=== PATIENT | male | born 1965 | race Caucasian/White ===

== ENCOUNTER → 2017-01-23 | Outpatient (CLI) | payer BC ==
[~2017-01-23] MED LIST: MOBIC7.5 MG PO; NORCO 5-325 MG1 TAB PO; XANAX0.25 MG PO
--- NOTE | ~2017-01-23 | PUL ---
PATIENT'S NAME: SAULO BOYLE [facility] AGE: 51 Y [address] ROOM: [place] [id number] LOCATION: [facility] ADMIT DATE: 01/23/2017 Pulmonary DISCHARGE DATE: FAMILY PHYSICIAN: VEGA DOWNING MD ATTENDING PHYSICIAN: PRIYANKA WILD NAME OF PROCEDURE: Pulmonary Function Test DATE OF PROCEDURE: January 23, 2017 TECH: WICHO King REASON FOR EXAM: Restrictive lung disease RESULTS: 1. FVC was 2.4 liters which is 47% of predicted and low, FEV1 was 1.98 liters which is 50% of predicted and low, and FEV1/FVC was 82% and normal. The flow volume curve did not reveal any significant airflow limitation. After bronchodilator administration FVC increased to 2.54 liters which is a 6% increase and FEV1 increased to 2.15 liters which is an 8% increase. FEV1/FVC was 85%. 2. DLCO was 18.9 with an adjusted DLCO of 18.6 which is 58% of predicted and low. 3. Total lung capacity was 2.72 liters which is 40% of predicted and low, and residual volume was 0.32 liters which is 15% of predicted and low. PHYSICIAN INTERPRETATION: The patient has no airflow limitation and no significant bronchodilator response. His diffusion capacity is moderately low. There is evidence of moderately severe restrictive lung disease. PRIYANKA WILD MD RFNishi/vero /[id number] dtt: 01/27/17 1228 , PRIYANKA WILD dtd: 01/26/17 0857
== END | disposition disaster alternative care site (69) ==
LOC: GRTH 12-23 11:30 → GRAD 12-23 11:30 → GRTH 01-12 13:00
DX: J98.4 Other disorders of lung (principal)